=== PATIENT | male | born 1965 | race Caucasian/White ===

== ENCOUNTER 2023-10-17 07:34 | Inpatient (IN) | payer MEDICARE, MEDICAID, SELFPAY ==
[2023-10-17] VITALS (7 sets, daily range): BP systolic 145–185; BP diastolic 74–102; PULSE 63–75; RESP 16–20; TEMP 36.6–37.2; O2SAT 98–100; BMI 22.9
--- NOTE | ~2023-10-17 | CT_ITS ---
EXAMINATION: CT HEAD WITHOUT CONTRAST CLINICAL INFORMATION: Fall a few days ago. COMPARISON: None available. TECHNIQUE: Contiguous axial imaging was performed from the skull base to vertex without intravenous administration of contrast. This CT examination was performed using dose optimization techniques as appropriate, variously including the following: *Automated exposure control *Adjustment of mA and/or kV according to patient size (this includes techniques or standardized protocols for targeted exams where dose is matched to indication/reason for exam; i.e. extremities or head) *Use of iterative reconstruction technique DLP: 685 mGy-cm FINDINGS: There is hypodensity in the left occipital lobe, with encephalomalacia, mild dilatation of the left posterior horn lateral ventricle. Findings suggest sequela of prior infarction. There is no evidence of acute intracranial hemorrhage or edematous territorial infarction. No abnormal mass effect or midline shift is seen. Vasques to white matter differentiation is well preserved. No abnormal extra-axial fluid collections are identified. The ventricles are normal in size. The cerebellar tonsil is appropriately positioned. No acute calvarial fracture. Paranasal sinuses and mastoid air cells are well-aerated. CT/CT head/brain wo IV con IMPRESSION: *No CT evidence of acute intracranial hemorrhage or abnormal extra-axial fluid collection. *Left occipital hypodensity/encephalomalacia suggestive of prior infarction. *No CT evidence of acute edematous territorial infarction.
--- NOTE | ~2023-10-17 | CT_ITS ---
EXAMINATION: CT CHEST, ABDOMEN AND PELVIS with contrast CLINICAL INFORMATION: Reason for Exam sob, ams, abd pain, abnormal abd labs bili 1.8 COMPARISON: None TECHNIQUE: Multidetector volumetric CT imaging of the chest abdomen and pelvis obtained Axial MIP volume rendering provided. Sagittal and coronal reformatted images were obtained. This CT examination was performed using dose optimization techniques as appropriate, variously including the following: *Automated exposure control *Adjustment of mA and/or kV according to patient size (this includes techniques or standardized protocols for targeted exams where dose is matched to indication/reason for exam; i.e. extremities or head) *Use of iterative reconstruction technique CONTRAST: 85 mL Omnipaque 350 injected. Reformatted coronal and sagittal imaging was performed. DLP: 596 mGy-cm FINDINGS: IRON MELTER, LINES TUBES: Middle School Football Coach reviewed, no lines. LUNGS: Interstitial: Mild infiltrate/subsegmental atelectasis at middle and right lower lobes. Lung nodules: There is a 5 mm nodule right upper lobe image 147 series 4 AIRWAYS: Trachea and bronchi are normal. PLEURA: There is a small right pleural effusion. MEDIASTINUM AND VAMSI: The visualized thyroid gland is unremarkable. Mildly prominent pretracheal and right hilar lymph node might be reactive. There is no mediastinal mass. THORACIC AORTA: Aneurysmal dilatation of ascending aorta 4.2 cm. Descending aorta normal in size measures a 2.7 cm. CHEST WALL, LOWER NECK, SURROUNDING SOFT TISSUES: Normal HEART AND PERICARDIUM: Heart is enlarged. There are heavy coronary calcifications. HEPATOBILIARY: Diffusely hypodense liver suggesting hepatic steatosis. GALLBLADDER: Gallbladder unremarkable. SPLEEN: Spleen is normal in size. PANCREAS: No focal mass or ductal dilatation. GI TRACT: No distention or wall thickening. Evaluation of the bowel is limited due to lack of contrast and crowding of bowel loops, there is however no evidence of obstruction. ADRENALS: No adrenal nodules. KIDNEYS/URETERS: No hydronephrosis, stones or solid mass lesions. PELVIC ORGANS/BLADDER: Unremarkable PERITONEUM: No free air or fluid. LYMPH NODES: no retroperitoneal or mesenteric lymphadenopathy. VASCULAR:Heavy aortic vascular calcifications without evidence of aneurysm. BONES, ABDOMINAL WALL AND SOFT TISSUES: No active disease of the lumbar spine degenerative disc disease especially at L3-L4 L4-L5 and L5-S1. CT/CT abdomen pelvis w IV con IMPRESSION: 1. Mild interstitial infiltrate/subsegmental atelectasis at middle and right lower lobes. 2. Small right pleural effusion. 3. Mildly prominent mediastinal and right hilar lymph nodes probably reactive. 4. Cardiomegaly. 5. Diffusely hypodense liver suggesting hepatic steatosis. 6. Aneurysmal dilatation of ascending aorta 4.2 cm. 7. Heavy coronary calcification. 8. There is a 5 mm nodule right upper lobe. Attention to follow-up chest CT in 3 months recommended to ensure complete clearance and exclude underlying pathology.
--- NOTE | ~2023-10-17 | CT_ITS ---
EXAMINATION: CT CHEST, ABDOMEN AND PELVIS with contrast CLINICAL INFORMATION: Reason for Exam sob, ams, abd pain, abnormal abd labs bili 1.8 COMPARISON: None TECHNIQUE: Multidetector volumetric CT imaging of the chest abdomen and pelvis obtained Axial MIP volume rendering provided. Sagittal and coronal reformatted images were obtained. This CT examination was performed using dose optimization techniques as appropriate, variously including the following: *Automated exposure control *Adjustment of mA and/or kV according to patient size (this includes techniques or standardized protocols for targeted exams where dose is matched to indication/reason for exam; i.e. extremities or head) *Use of iterative reconstruction technique CONTRAST: 85 mL Omnipaque 350 injected. Reformatted coronal and sagittal imaging was performed. DLP: 596 mGy-cm FINDINGS: COMMUNICATIONS TECH, LINES TUBES: Chemical Strength Tester reviewed, no lines. LUNGS: Interstitial: Mild infiltrate/subsegmental atelectasis at middle and right lower lobes. Lung nodules: There is a 5 mm nodule right upper lobe image 147 series 4 AIRWAYS: Trachea and bronchi are normal. PLEURA: There is a small right pleural effusion. MEDIASTINUM AND VAMSI: The visualized thyroid gland is unremarkable. Mildly prominent pretracheal and right hilar lymph node might be reactive. There is no mediastinal mass. THORACIC AORTA: Aneurysmal dilatation of ascending aorta 4.2 cm. Descending aorta normal in size measures a 2.7 cm. CHEST WALL, LOWER NECK, SURROUNDING SOFT TISSUES: Normal HEART AND PERICARDIUM: Heart is enlarged. There are heavy coronary calcifications. HEPATOBILIARY: Diffusely hypodense liver suggesting hepatic steatosis. GALLBLADDER: Gallbladder unremarkable. SPLEEN: Spleen is normal in size. PANCREAS: No focal mass or ductal dilatation. GI TRACT: No distention or wall thickening. Evaluation of the bowel is limited due to lack of contrast and crowding of bowel loops, there is however no evidence of obstruction. ADRENALS: No adrenal nodules. KIDNEYS/URETERS: No hydronephrosis, stones or solid mass lesions. PELVIC ORGANS/BLADDER: Unremarkable PERITONEUM: No free air or fluid. LYMPH NODES: no retroperitoneal or mesenteric lymphadenopathy. VASCULAR:Heavy aortic vascular calcifications without evidence of aneurysm. BONES, ABDOMINAL WALL AND SOFT TISSUES: No active disease of the lumbar spine degenerative disc disease especially at L3-L4 L4-L5 and L5-S1. CT/CT chest w IV con IMPRESSION: 1. Mild interstitial infiltrate/subsegmental atelectasis at middle and right lower lobes. 2. Small right pleural effusion. 3. Mildly prominent mediastinal and right hilar lymph nodes probably reactive. 4. Cardiomegaly. 5. Diffusely hypodense liver suggesting hepatic steatosis. 6. Aneurysmal dilatation of ascending aorta 4.2 cm. 7. Heavy coronary calcification. 8. There is a 5 mm nodule right upper lobe. Attention to follow-up chest CT in 3 months recommended to ensure complete clearance and exclude underlying pathology.
--- NOTE | ~2023-10-17 | XR_ITS ---
EXAMINATION: XR chest 1V CLINICAL INFORMATION: Reason for Exam chest pian COMPARISON: None TECHNIQUE: Single portable frontal view. Tubes and lines: None Lungs and pleura: There is pulmonary vascular congestion, mild diffuse interstitial opacification possibly mild interstitial edema. There is a small right subpulmonic pleural effusion. Heart and mediastinum: Cardiac silhouette is enlarged, this is exaggerated by AP technique, prominent right eh, there are sternotomy wires from prior thoracotomy.. Bones/soft tissue: Skeletal structures included are normal for patient's age. XR/XR chest 1V IMPRESSION: 1. Congestive heart failure. 2. Small right subpulmonic pleural effusion. 3. Prominence of the right eh, enlarged cardiac silhouette this is exaggerated by AP technique. Recommend correlation with follow-up chest PA and lateral.
--- NOTE | 2023-10-17 07:41 | ECG_ITS ---
Test Reason : CHEST PAIN Blood Pressure : / mmHG Vent. Rate : 067 BPM Atrial Rate : 067 BPM P-R Int : 230 ms QRS Dur : 102 ms QT Int : 418 ms P-R-T Axes : 069 -08 114 degrees QTc Int : 441 ms Sinus rhythm with 1st degree A-V block Minimal voltage criteria for LVH, may be normal variant ( Tuan product ) Inferior infarct , age undetermined Anterior infarct , age undetermined T wave abnormality, consider lateral ischemia Abnormal ECG No previous ECGs available Referred By: Home Andrews Electronically Signed By:Thomas Mancilla
[2023-10-17 07:54] LABS: MANUAL DIFF FLAG NO
[2023-10-17 07:56] LABS: Basophils Percent Auto 0.5 % (0-2); Eosinophils Absolute Auto 0.3 X10*3/uL (0.0-0.4); Eosinophils Percent Auto 4.5 % (0-4); Hematocrit 39.8 % (42.0-52.0); Hemoglobin 12.5 g/dl (14.0-18.0); Imm Gran Abs Auto 0.02 X10*3/uL (0.00-0.03); Imm Gran Pct Auto 0.4 % (0.0-0.4); Lymphocytes Absolute Auto 0.7 X10*3/uL (1.2-4.9); Lymphocytes Percent Auto 12.4 % (20-40); Mean Corpuscular HGB Conc 31.4 g/dl (31.0-36.0); Mean Corpuscular Hemoglobin 26.4 pg (27.0-33.0); Mean Corpuscular Volume 84.1 fL (80.0-98.0); Mean Platelet Volume 11.2 fL (9.4-12.4); Monocytes Absolute Auto 0.4 X10*3/uL (0.1-1.2); Neutrophils Absolute Auto 4.2 x10*3/uL (2.0-8.3); Neutrophils Percent Auto 75.2 % (45-73); Platelet Count 148 X10*3/uL (160-400); Red Blood Count 4.73 X10*6/uL (4.60-5.80); Red Cell Distribution Width 16.7 % (11.0-16.0); White Blood Count 5.6 X10*3/uL (4.8-10.8)
[2023-10-17 08:06] LABS: INTERNATIONAL NORM RATIO 1.1 (0.9-1.1); Prothrombin Time 12.9 SEC (11.1-13.3)
[2023-10-17 08:08] LABS: COVID-19 Test Negative (Negative); IDNOW Serial# 152EDE1D
[2023-10-17 08:13] LABS: Alanine Aminotransferase 19 U/L (0-40); Albumin Level 3.3 g/dL (3.5-5.0); Alkaline Phosphatase 137 U/L (39-117); Anion Gap 9 (12-20); Aspartate Amino Transferase 25 U/L (5-37); Bilirubin Direct 0.9 mg/dL (0.0-0.5); Bilirubin Total 1.3 mg/dL (0.0-1.0); Blood Urea Nitrogen 28 mg/dL (9-16); Carbon Dioxide 26 mmol/L (22-29); Chloride 105 mmol/L (96-108); Creatinine Clr Calc Pharmacy 62.1; Estimated Glomerular Filt Rate > 60; Glucose Random 138 mg/dL (60-115); Potassium 4.7 mmol/L (3.3-5.1); Sodium 135 mmol/L (135-145); Total Protein 7.6 g/dL (6.5-8.0)
[2023-10-17 08:23] LABS: Troponin-I High Sensitivity 22.2 ng/L (<3.5-35.0)
--- NOTE | 2023-10-17 09:06 | ED.CHESTPAIN ---
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 Reports significant weakness, and states his chest hurts in the center. Now having fatigue, malaise, myalgias, difficulties urinating. He is drowsy, somnolent upon my examination able to answer basic questions alert to person, place not time or situation. Not on blood thinners. Non med compliant Difficult to assess NIH stroke scale patient falls asleep during my examination. Related Data Allergies Allergy/AdvReac Type Severity Reaction Status Date / Time No Known Allergies Allergy Verified 10/17/23 10:28 Review of Systems Review of Systems: Yes all other systems are reviewed and are negative [facility] Past Medical History Attestation statement: The following information was validated with the patient. Source: old records reviewed and nursing notes reviewed Social History Social History Smoked in Last 30 Days: Yes Advance Directives: No Advance Directives Information Provided: No Physical Exam Vital Signs: Vital Signs: Last Vital Signs Temp 97.8 F 10/17/23 13:34 Pulse 75 10/17/23 13:34 Resp 16 10/17/23 13:34 BP 147/90 H 10/17/23 13:34 Pulse Ox 100 10/17/23 13:34 O2 Del Method Room Air 10/17/23 13:34 BMI result Body Mass Index 22.9 vss Appearance: Alert.? Oriented X3.? Patient appears sick, somnolent and drowsy Head: Normocephalic, atraumatic, no step-offs or deformities Eyes: Pupils equal, round and reactive to light.? ENT: Pharynx normal.? Neck: Normal inspection.? Neck supple.? CVS: Normal heart rate and rhythm.? Pulses normal.? Respiratory: No respiratory distress.? Breath sounds faint crackles RLL.? Abdomen: Soft and diffuse discomfort.? Skin: Skin warm and dry.? Normal skin color.? Normal skin turgor.? Extremities: No lower extremity edema.? No calf ttp. Global weakness. Neuro: Oriented to person and place not time or situation.? No motor deficit.? No sensory deficit. Difficult to assess all 12 cranial nerves. Course Reevaluation(s) Reevaluation #1: CBC with normocytic anemia. Low platelets 148. No baseline labs to compare with. Chemistry with an elevated BUN likely secondary to poor p.o. intake/dehydration. Total bilirubin 1.3 could be secondary to history of polysubstance abuse,/hepatitis. Troponin 22.2 with he waves inverted in the anterior/lateral leads will obtain repeat troponin at this time. No complaints of chest pain at this moment. Will hold anticoagulation at this time. Coags unremarkable. COVID negative. CT head, toxicology, repeat troponin pending. Time: 09:31 Reevaluation #2: Spoke to patient's significant other on the phone we tells me patient was then had an [facility] recently and that we should obtain records from them they have a full list of medications on this patient. She tells me he is on Lasix unsure if he is taking it as prescribed. Repeat troponin negative/flat unlikely ACS. Ethanol negative. Urine toxicology, CT head, chest, abdomen and pelvis pending. Time: 10:56 Reevaluation #3: Spoke to [facility] Patient was seen at [facility] on Oct 13 per ED attending DC from hospital on Oct 13. Has PMHX heart faliure EF of < 25, CAD, 3 vessel CABGE, aortic valve endocarditits (2019), hepatitis C ( not treated), epilepsy. Spoke to Cardiology --> BNP likely elevated due to HF. Diuretics if crackles persist. Also recommends cultures. Medications Administered Discontinued Medications Generic Name Dose Route Start Last Admin Trade Name Freq PRN Reason Stop Dose Admin Furosemide 40 mg 10/17/23 10:19 10/17/23 10:28 Furosemide 40 Mg/4 Ml Vial IVPUSH 10/17/23 10:20 40 mg STAT STA Administration Protocol Iohexol 100 ml 10/17/23 10:43 10/17/23 10:43 Iohexol 350 Mg/Ml 100 Ml Infus..Btl IV 10/17/23 10:44 85 ml ONCE ONE Administration Medical Decision Making Medical Decision Making [facility] Narrative: [address] Andrews asked charge nurse to bring this patient back from the waiting roomd/t inverted T waves in anterior/lateral leads, no previous to compare with 58-year-old male presents with altered mental status x4 days had a fall 4 days ago with head strike and loss of consciousness. Now having fatigue, malaise, myalgias, difficulties urinating. Not on blood thinners. Very poor historian According to family members at the hospital he was seen he signed out against medical advice they told him he may have a brain bleed. Physical exam global weakness patient appears sick, somnolent, lethargic. Oriented to oriented to person and place not time or situation. RLL faint crackles. Will rule out intracranial hemorrhage, patient appears encephalopathic. Will rule out metabolic derangements, ACS. Unlikely pulmonary embolism. Will also rule out urinary tract infection, CHF, obstructing uropathy, urinary infection. Diffuse discomfort could be secondary to UTI, obstructing uropathy. Less likely acute abdomen, dissection, pancreatitis, diverticulitis, cholecystitis or appendicitis. Plan at this time labs, imaging, urine, toxicology, EKG. Differential Diagnosis Differential Diagnoses: The differential diagnosis associated with the presentation includes Will rule out intracranial hemorrhage, patient appears encephalopathic. Will rule out metabolic derangements, ACS. Unlikely pulmonary embolism. Will also rule out urinary tract infection, CHF, obstructing uropathy, urinary infection. Diffuse discomfort could be secondary to UTI, obstructing uropathy. Less likely acute abdomen, dissection, pancreatitis, diverticulitis, cholecystitis or appendicitis. 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 10/17/23 07:49 10/17/23 07:49 Labs: Lab Results 10/17/23 10/17/23 10/17/23 Range/Units 07:49 09:47 11:22 WBC 5.6 (4.8-10.8) X10*3/uL RBC 4.73 (4.60-5.80) X10*6/uL Hgb 12.5 L (14.0-18.0) g/dl Hct 39.8 L (42.0-52.0) % MCV 84.1 (80.0-98.0) fL MCH 26.4 L (27.0-33.0) pg MCHC 31.4 (31.0-36.0) g/dl RDW 16.7 H (11.0-16.0) % Plt Count 148 L (160-400) X10*3/uL MPV 11.2 (9.4-12.4) fL Immature Gran % (Auto) 0.4 (0.0-0.4) % Neut % (Auto) 75.2 H (45-73) % Lymph % (Auto) 12.4 L (20-40) % Gallia % (Auto) 7.0 (2-11) % Eos % (Auto) 4.5 H (0-4) % Baso % (Auto) 0.5 (0-2) % Lymph # (Auto) 0.7 L (1.2-4.9) X10*3/uL Gallia # (Auto) 0.4 (0.1-1.2) X10*3/uL Eos # (Auto) 0.3 (0.0-0.4) X10*3/uL Baso # (Auto) 0.0 (0.0-0.2) X10*3/uL Abs Immat Gran (auto) 0.02 (0.00-0.03) X10*3/uL Absolute Neuts (auto) 4.2 (2.0-8.3) x10*3/uL Absolute Nucleated RBC 0.000 (0.0-0.012) X10*3/uL Nucleated RBC % (auto) 0.0 (0.0-0.2) /100WBC PT 12.9 (11.1-13.3) SEC INR 1.1 (0.9-1.1) Sodium 135 (135-145) mmol/L Potassium 4.7 (3.3-5.1) mmol/L Chloride 105 (96-108) mmol/L Carbon Dioxide 26 (22-29) mmol/L Anion Gap 9 L (12-20) BUN 28 H (9-16) mg/dL Creatinine 1.00 (0.5-1.4) mg/dL Estim Creat Clear Calc 62.1 Estimated GFR > 60 Random Glucose 138 H (60-115) mg/dL Lactic Acid 1.1 (0.5-2.0) mmol/L Calcium 9.0 (8.4-10.2) mg/dL Total Bilirubin 1.3 H (0.0-1.0) mg/dL Direct Bilirubin 0.9 H (0.0-0.5) mg/dL AST 25 (5-37) U/L ALT 19 (0-40) U/L Alkaline Phosphatase 137 H (39-117) U/L Troponin I High Sens 22.2 20.3 (<3.5-35.0) ng/L B-Natriuretic Peptide 2264 H (<100) pg/mL Total Protein 7.6 (6.5-8.0) g/dL Albumin 3.3 L (3.5-5.0) g/dL Urine Color Yellow Urine Appearance Clear Urine pH 8.0 (5.0-9.0) Ur Specific [place] 1.015 (1.005-1.025) Urine Protein Negative (Neg-Trace) mg/dL Urine Glucose (UA) Negative (Negative) mg/dL Urine Ketones Negative (Negative) mg/dL Urine Blood Negative (Negative) Urine Nitrite Negative (Negative) Ur Leukocyte Esterase Negative (Negative) Urine Opiates Screen Not Detected (Not Detect) Urine Fentanyl Screen POSITIVE H (Not Detect) Ur Barbiturates Screen Not Detected (Not Detect) Ur Phencyclidine Scrn Not Detected (Not Detect) Ur Amphetamines Screen Not Detected (Not Detect) U Benzodiazepines Scrn POSITIVE H (Not Detect) Urine Cocaine Screen Not Detected (Not Detect) U Marijuana (THC) Screen Not Detected (Not Detect) Ethyl Alcohol < 10 mg/dL COVID-19 (BHUPINDER) Negative (Negative) COVID-19 Clin Com See Note Independent Interpretation I performed an independent interpretation of an: EKG (Ventricular rate 67 VA prolonged, QRS normal, QT/QTC normal, T-waves inverted in the anterior/lateral. No previous EKGs to compare with. Will repeat troponin at 03:00 hour enrique), Plain X-Ray (XR/XR chest 1V IMPRESSION: 1. Congestive heart failure. 2. Small right subpulmonic pleural effusion. 3. Prominence of the right eh, enlarged cardiac silhouette this is exaggerated by AP technique. Recommend correlation with follow-up chest PA and lateral.) and CT Scan (CT/CT chest w IV con IMPRESSION: 1. Mild interstitial infiltrate/subsegmental atelectasis at middle and right lower lobes. 2. Small right pleural effusion. 3. Mildly prominent mediastinal and right hilar lymph nodes probably reactive. 4. Cardiomegaly. 5. Diffusely hypodense liver sug) Radiology Impression Discussion of test interpretation with radiology: I have reviewed the radiologist's reading. Critical Care Time Critical Care Time Critical Care Time: Yes Total Critical Care Time: 45 Attestation: I attest to this time spent taking care of the patient, obtaining history, physical, reviewing labs, imaging, speaking to my attending, speaking to specialist. Discharge Plan Discharge Clinical Impression: Altered mental status Patient Disposition: Still a Patient
--- NOTE | 2023-10-17 09:26 | PC.NURSE ---
pt to CT at this time. will resume care when pt returns.
--- NOTE | 2023-10-17 09:47 | PC.NURSE ---
18gIV placed in the left forearm - labs obtained/sent to lab.
--- NOTE | 2023-10-17 10:04 | PC.NURSE ---
20gIV placed in the right forearm. 2nd set of cultures obtained/sent to lab.
[2023-10-17 10:09] LABS: B Type Natriuretic Peptide 2264 pg/mL (<100)
[2023-10-17 10:09] LABS: Lactic Acid 1.1 mmol/L (0.5-2.0)
--- NOTE | 2023-10-17 10:13 | PC.NURSE ---
pt to CT at this time.
[2023-10-17 10:21] LABS: Troponin-I High Sensitivity 20.3 ng/L (<3.5-35.0)
[2023-10-17 10:24] LABS: Ethanol < 10 mg/dL
[2023-10-17] MEDS: Furosemide 40 MG/4 ML VIAL IVPUSH (10:28)
--- NOTE | 2023-10-17 10:32 | PC.NURSE ---
pt returned from CT at this time. medication administered per provider order. pt waiting for CT results at this time. respirations remain even and unlabored. call cardona placed within reach.
[2023-10-17] MEDS: iohexoL 350 MG/ML 100 ML INFUS..BTL IV (10:43)
--- NOTE | 2023-10-17 11:24 | PC.NURSE ---
urine obtained/sent to lab. 1,200ml of clear, pale yellow urine noted in urinal post lasix administration. pt continues to rest in bed in no apparent distress at this time. respirations remain even and unlabored. family bedside. call cardona placed within reach.
[2023-10-17 11:28] LABS: Appearance Urine Clear; Color Urine Yellow; Glucose Urine UA Negative (Negative); Leukocyte Esterase Urine Negative (Negative); Nitrite Urine Negative (Negative); Specific Gravity - Urine 1.015 (1.005-1.025); Urine Blood Negative (Negative); Urine Ketones Negative (Negative); Urine Protein Negative (Neg-Trace)
[2023-10-17 11:40] LABS: Amphetamine Screen Urine Not Detected (Not Detect); Barbiturates, Urine Not Detected (Not Detect); Benzodiazepines Screen Urine POSITIVE (Not Detect); Cannabinoid Screen Urine Not Detected (Not Detect); Cocaine Screen Urine Not Detected (Not Detect); Fentanyl, urine POSITIVE (Not Detect); Opiate Screen Urine Not Detected (Not Detect); Phencyclidine Screen Urine Not Detected (Not Detect)
--- NOTE | 2023-10-17 13:35 | PC.NURSE ---
vss and up to date at this time. pt sitting upright/resting comfortably in no apparent distress eating lunch. respirations remain even and unlabored. family bedside for support. call cardona placed within reach.
--- NOTE | 2023-10-17 13:47 | P.HPHOSP_ITS ---
History of Present Illness Date of Service: 10/17/23 Attending physician on admission: Luís Sinclair Chief Complaint: AMS, chest pain Pt is a 58-year-old male with a PMH significant for?CAD, 3-vessel CABG (2019), HFrEF <25%, aortic valve endocarditis (2018), hepatitis C (untreated), and epilepsey who presents to the ED for evaluation of altered mental status, SOB, weakness, and fatigue x4 days. Pt lives in [facility], and had a fall with headstrike and LOC 4 days ago in [facility] [place]. ED provider contacted [facility] in [place] and found out that patient was seen on October 13 and left AMA later that same day. There was concern for possible bleeding on brain. Attempted to get records from hospital but will be unable to obtain until Wednesday. Patient then came to [place] to visit his sister. While here he was noted to have moments of confusion and lethargy. Sister states a few days ago he was repeatedly asking the same questions, more silent than usual, and not recognizing people. Mentation has improved some since then, but pt has also been fatigued and lethargic, weak and unable to ambulate at home. When pt initially presented to the ED he was somnolent, arousable to verbal stimuli, but barely participating in interview and falling back asleep during exam. Pt more awake during this interview and AOx3, but also falling asleep during exam. Pt states he has been having difficulty breathing and feels like he has ?water on his lungs? for the past 2-3 days. Endorses orthopnea and currently can only sleep on his side. Feels weak and has had difficulty walking. Denies chest pain/pressure, palpitations, but has chest discomfort with breathing. Denies fever, chills, N/V, abdominal pain. No headache or acute vision changes. According to sister, pt has had multiple previous admissions to the hospital for CHF, with last one possible 2-3 weeks ago. Pt states he occasionally takes his home medications, but more often than not does not. Sister also reports patient had a long history of IVDU, but was clean for 13-14 years; however, after CABG began using again for a short period. Sister believes he has been clean for some time. However, offers conflicting reports of last use: first states 8 days ago, then later 4-5 days ago. Denies IV use, says has been snorting heroin. In the ED pt was hypertensive up to 185/102, vitals otherwise WNL. Labs were significant for H&H 12.5/39.8, BUN 28, creatinine 1.00 (baseline unknown), bilirubin 1.3, alk-phos 137, initial troponin 22.2 with repeat flat at 20.3., BNP 2264. Tox screen positive for fentanyl and benzos. Tested negative for COVID. CXR showed evidence of congestive heart failure with small right pleural effusion. Head CT found no evidence of acute intracranial hemorrhage or abnormal extra-axial fluid collection and no evidence of acute edematous territorial infarction. But did find left occipital hypodensity/encephalomalacia suggestive of prior infarction. CT of chest found mild interstitial infiltrate/subsegmental atelectasis at middle and right lower lobes with small right pleural effusion, mildly prominent mediastinal and right hilar lymph nodes probably reactive, cardiomegaly, heavy coronary calcification, and 5 mm nodule in right upper lobe. CT of abdomen/pelvis found aneurysmal dilation of ascending aorta 4.2 cm, and diffusely hypodense liver suggesting hepatic steatosis. EKG demonstrated sinus rhythm with first-degree AV block with T-wave inversions in V4, V5, V6, and lead I. Pt was treated with furosemide 40mg IV. Pt will be admitted to the hospital for treatment further evaluation of acute decompensated HFrEF exacerbation. Review of Systems 2 Review of Systems: SOB, difficulty breathing Fatigue, weakness, unable to ambulate at home Confusion Chest discomfort with breathing Denies chest pain/pressure, palpitations [facility] Medical History (Updated 10/17/23 @ 15:45 by DION Ortiz) Seizure disorder Hepatitis C CAD (coronary artery disease) Endocarditis IVDU (intravenous drug user) HFrEF (heart failure with reduced ejection fraction) Surgical History (Updated 10/17/23 @ 15:43 by DION Ortiz) S/P CABG (coronary artery bypass graft) Social History Household Members: Other Housing: House Do you presently have visiting nurse or other home services: No Patient Tobacco Use Status: Former Tobacco user Tobacco use type: Cigarette Smoked in Last 30 Days: Yes Substance Use Type: Unknown Substance Use Frequency: Daily Last Used Substance: Days (ago) Currently Displaying Signs/Symptoms of Drug Intoxication Withdrawal: Yes Any prior treatment program specific to substance use: Yes Have you been hit, kicked, punched, or otherwise hurt by someone within the past year? If so, by whom?: No Do you feel safe in your current relationship?: Yes Is there a partner from a previous relationship who is making you feel unsafe now?: No Advance Directives: No Advance Directives Information Provided: No Do you have thoughts of harming others: None Do you have a plan to hurt others: No Plan Nutrition Risks: No Nutritional Risk Meds Allergies Allergy/AdvReac Type Severity Reaction Status Date / Time No Known Allergies Allergy Verified 10/17/23 10:28 Home Medications Medication Instructions Recorded Confirmed Last Taken Type apixaban 5 mg tablet (Eliquis) 5 mg PO BID 10/17/23 10/17/23 Unknown History aspirin 81 mg tablet,delayed 81 mg PO DAILY 10/17/23 10/17/23 Unknown History release atorvastatin 40 mg tablet 40 mg PO DAILY 10/17/23 10/17/23 Unknown History bumetanide 2 mg tablet 2 mg PO DAILY 10/17/23 10/17/23 Unknown History buprenorphine 8 mg-naloxone 2 mg 1 film sublingual DAILY 10/17/23 10/17/23 Unknown History sublingual film carvedilol 6.25 mg tablet 6.25 mg PO DAILY 10/17/23 10/17/23 Unknown History dapagliflozin propanediol 10 mg 10 mg PO DAILY 10/17/23 10/17/23 Unknown History tablet (Farxiga) eplerenone 25 mg tablet 25 mg PO DAILY 10/17/23 10/17/23 Unknown History isosorbide mononitrate 30 mg 30 mg PO DAILY 10/17/23 10/17/23 Unknown History tablet,extended release 24 hr sacubitril 24 mg-valsartan 26 mg 1 tab PO DAILY 10/17/23 10/17/23 Unknown History tablet (Entresto) Physical Exam 2 Vital Signs and Narrative: Vital Signs: Last Vital Signs Temp 97.8 F 10/17/23 13:34 Pulse 75 10/17/23 13:34 Resp 16 10/17/23 13:34 BP 147/90 H 10/17/23 13:34 Pulse Ox 100 10/17/23 13:34 O2 Del Method Room Air 10/17/23 13:34 BMI result Body Mass Index 22.9 Constitutional: Alert, somnolent but arousable, falling asleep during interview, in no acute distress. Mental Status: Oriented to person, place and time. Eyes: Pupils are equal, round, and reactive to light. Ear, Nose, and Throat: Oropharynx clear, mucous membranes moist. Ears and nose without deformities. Trachea midline. Respiratory: Mild crackles in lower lobes. Cardiovascular: S1, S2 regular. No murmurs, rubs, or gallops. Gastrointestinal: Abdomen soft, non-tender, non-distended. Normal bowel sounds. Neurologic: Cranial nerves II-XII are grossly intact bilaterally. No focal neurological deficits. Moves all extremities spontaneously. Skin: Warm, dry. Musculoskeletal: No cyanosis or clubbing. Extremities: No edema. Psychiatric: Normal mood and affect. Results Labs 10/17/23 07:49 10/17/23 07:49 Labs: Laboratory Results - last 24 hr 10/17/23 10/17/23 10/17/23 07:49 09:47 11:22 MCV 84.1 MCH 26.4 L MCHC 31.4 RDW 16.7 H Plt Count 148 L MPV 11.2 Immature Gran % (Auto) 0.4 Neut % (Auto) 75.2 H Lymph % (Auto) 12.4 L Charlotte % (Auto) 7.0 Eos % (Auto) 4.5 H Baso % (Auto) 0.5 Lymph # (Auto) 0.7 L Charlotte # (Auto) 0.4 Eos # (Auto) 0.3 Baso # (Auto) 0.0 Abs Immat Gran (auto) 0.02 Absolute Neuts (auto) 4.2 Absolute Nucleated RBC 0.000 Nucleated RBC % (auto) 0.0 PT 12.9 INR 1.1 Anion Gap 9 L Estim Creat Clear Calc 62.1 Estimated GFR > 60 Random Glucose 138 H Lactic Acid 1.1 Calcium 9.0 Total Bilirubin 1.3 H Direct Bilirubin 0.9 H AST 25 ALT 19 Alkaline Phosphatase 137 H Troponin I High Sens 22.2 20.3 B-Natriuretic Peptide 2264 H Total Protein 7.6 Albumin 3.3 L Urine Color Yellow Urine Appearance Clear Urine pH 8.0 Ur Specific Harwood 1.015 Urine Protein Negative Urine Glucose (UA) Negative Urine Ketones Negative Urine Blood Negative Urine Nitrite Negative Ur Leukocyte Esterase Negative Urine Opiates Screen Not Detected Urine Fentanyl Screen POSITIVE H Ur Barbiturates Screen Not Detected Ur Phencyclidine Scrn Not Detected Ur Amphetamines Screen Not Detected U Benzodiazepines Scrn POSITIVE H Urine Cocaine Screen Not Detected U Marijuana (THC) Screen Not Detected Ethyl Alcohol < 10 COVID-19 (BHUPINDER) Negative COVID-19 Clin Com See Note Imaging Radiologist's Impressions: Impressions Chest X-Ray 10/17/23 08:14 IMPRESSION: 1. Congestive heart failure. 2. Small right subpulmonic pleural effusion. 3. Prominence of the right eh, enlarged cardiac silhouette this is exaggerated by AP technique. Recommend correlation with follow-up chest PA and lateral. Head CT 10/17/23 09:42 IMPRESSION: *No CT evidence of acute intracranial hemorrhage or abnormal extra-axial fluid collection. *Left occipital hypodensity/encephalomalacia suggestive of prior infarction. *No CT evidence of acute edematous territorial infarction. Abdomen/Pelvis CT 10/17/23 10:44 IMPRESSION: 1. Mild interstitial infiltrate/subsegmental atelectasis at middle and right lower lobes. 2. Small right pleural effusion. 3. Mildly prominent mediastinal and right hilar lymph nodes probably reactive. 4. Cardiomegaly. 5. Diffusely hypodense liver suggesting hepatic steatosis. 6. Aneurysmal dilatation of ascending aorta 4.2 cm. 7. Heavy coronary calcification. 8. There is a 5 mm nodule right upper lobe. Attention to follow-up chest CT in 3 months recommended to ensure complete clearance and exclude underlying pathology. Chest CT 10/17/23 10:44 IMPRESSION: 1. Mild interstitial infiltrate/subsegmental atelectasis at middle and right lower lobes. 2. Small right pleural effusion. 3. Mildly prominent mediastinal and right hilar lymph nodes probably reactive. 4. Cardiomegaly. 5. Diffusely hypodense liver suggesting hepatic steatosis. 6. Aneurysmal dilatation of ascending aorta 4.2 cm. 7. Heavy coronary calcification. 8. There is a 5 mm nodule right upper lobe. Attention to follow-up chest CT in 3 months recommended to ensure complete clearance and exclude underlying pathology. Assessment and Plan (1) HFrEF (heart failure with reduced ejection fraction): Status: Acute Plan Pt is a 58-year-old male with a PMH significant for?CAD, 3-vessel CABG (2019), HFrEF <25%, aortic valve endocarditis (2019), hepatitis C (untreated), and epilepsey who presents to the ED for evaluation of altered mental status, SOB, weakness, and fatigue x4 days. Pt will be admitted to the hospital for treatment further evaluation of acute decompensated HFrEF exacerbation. Acute decompensated HFrEF exacerbation Increased SOB, fatigue, difficulty ambulating, elevated BNP, and CXR with evidence of CHF Likely secondary to medication noncompliance Patient apparently with history of LVEF <25%, multiple hospitalizations for CHF exacerbations Patient given 40 mg Lasix IV in ED Will treat with Lasix 40 mg IV b.i.d. Continue Entresto Follow lytes, mag, I/O Daily weights, low-salt diet Cardiology consult Echocardiogram Monitor on telemetry Altered mental status Family at home noted AMS x4 days Was quite somnolent and lethargic at time of presentation; difficult to keep awake Currently patient is still somnolent, but answering questions appropriately; unclear if at baseline Unclear etiology: No infectious source, but patient with history of IVDU and recent fall with head strike and LOC 4 days prior Imaging of head negative for acute intracranial pathology, acute territorial infarct, or acute hemorrhage Differential includes: In the setting of CHF exacerbation vs drug intoxication vs bacteremia vs concussion Monitor mentation Hx of IVDU Pt denies recent IV use, says has been snorting heroin Reports last using 3-4 days ago Addition medicine consult Follow cultures CAD/HLD Continue aspirin, statin HTN Continue carvedilol, isosorbide mononitrate Wwa-[id number]-vrgzvrzsz diabetes type [address] sliding scale insulin Full Code Attending:?Dr. Sinclair DVT Prophylaxis: On Eliquis Pt will require a hospitalization of at least two nights for treatment of?acute decompensated HFrEF and possible altered mental status. Patient has a significant cardiac history including CABG, aortic valve endocarditis, and seizure disorder and has had a high risk of severe decompensation if not hospitalized and treated with IV diuretics and close cardiac and lab monitoring. Patient also requires specialist consultation and additional cardiac imaging. Quality Stroke Does the patient have a stroke diagnosis?: No VTE Prior VTE?: No VTE Risk Level:: Medical - moderate - high VTE Device Contraindication: Treatment Not Indicated VTE Drug Contraindication: N/A - Med Ordered
--- NOTE | 2023-10-17 14:17 | PC.NURSE ---
pt speaking w/ hospitalist at this time.
[2023-10-17] MEDS: Enoxaparin Sodium 40 MG/0.4 ML SYRINGE SUBCUT (15:27)
--- NOTE | 2023-10-17 15:32 | PC.NURSE ---
pt speaking w/ literacy coach KASSIDY heath at this time.
--- NOTE | 2023-10-17 15:52 | MHC.RECOVRN ---
Met with pt in ED12 after consult placed to Addiction Medicine for recent heroin use and hx IV substance use. Pt had presented to the ED reporting chest pain, was drowsy in triage. Upon evaluation, pt admitted for treatment of acute decompensated HFrEF exacerbation. Pt laying in bed, awake, alert, easily engages in conversation. Appears slightly restless and anxious, reports feeling hot/cold. Pt reports he currently uses heroin/fentanyl, 1-2 bags daily, [place], x 3 years. Reports last use was Wednesday, however, pt seems to have incorrect timeline of recent events. Pt denies other substances. Pt reports hx Suboxone until 2019 when he had heart surgery, after that had difficulty initiating. Pt reports longest period of recovery was 10 years, utilizing Suboxone. Currently, pt is not interested in staying on MOUD, is only interested in utilizing medication while here to address any withdrawal symptoms. Pt reports he is not experiencing withdrawal, however, reporting chills and does appear slightly restless. Pt reports when he was recently at a hospital in [place] he was given 10 mg methadone with positive effect and was able to sleep. Pt denies hx methadone through [facility]. Pt denies questions or concerns at this time. Discussed with Christina Landry APRN.
--- NOTE | 2023-10-17 17:52 | PHA.MEDREC ---
Pharmacy Consult ? Medication Reconciliation Pharmacy has completed the medication reconciliation. Spoke with [facility] in [place] to get list of medications he was on with directions, this is what I used for his home med list. Attending PA is aware. Claim history does report consistent refills of Suboxone 8-2mg TID. PDMP does not show CT so unable to confirm through there.
--- NOTE | 2023-10-17 18:39 | PC.NURSE ---
admission worksheet complete. transport notified at this time.
[2023-10-17] MEDS: methADONE HCl 20 MG/2 ML ORAL.CONC 10 MG PO (21:08)
[2023-10-18] VITALS (7 sets, daily range): BP systolic 110–160; BP diastolic 66–97; PULSE 52–70; RESP 16–20; TEMP 36.3–37; O2SAT 95–100
[2023-10-18 00:39] LABS: Glucose, Whole Blood 90 mg/dL (60-115)
[2023-10-18] MEDS: Melatonin 3 MG TABLET 6 MG PO ×2 (00:41→23:17)
[2023-10-18] MEDS: methADONE HCl 20 MG/2 ML ORAL.CONC 10 MG PO (03:13)
[2023-10-18] MEDS: 0.9 % Sodium Chloride Flush 3 ML SYRINGE IVFLUSH ×2 (03:15→09:31)
--- NOTE | 2023-10-18 07:00 | CA_ITS ---
Transthoracic Echocardiogram Patient (Last, First, Middle): Candido Byrd, Gender: Male Date of : 1965 Age: 58 Procedure Date: 10/18/2023 Procedure Type: Transthoracic Echocardiogram Location: [facility] [place] Height: 157.48 cm Weight: 56.7 kg BSA: 1.57 m2 Heart Rate: 46 bpm BP: 160 / 97 mmHg Mri Tech: DAVID Sim MD: Kyra ASHLEY Security Tester: Jeff Medellin MD Symptoms: CHF exacerbation Study Quality: Adequate ECG Rhythm: Bradycardia Conclusions: - 1. Mildly dilated left ventricle with moderately reduced LV ejection fraction with grade 3 diastolic dysfunction with moderate LVH with underlying wall motion abnormality consistent with ischemic cardiomyopathy 2. Severe biatrial enlargement 3. Mild aortic regurgitation 4. Normal RV systolic pressure 5. Mildly dilated ascending aorta at 4.2 cm 6. No gross pericardial effusion Findings Left Ventricle Mildly increased left ventricular cavity size. There is moderately increased left ventricular wall thickness. The left ventricular systolic function is moderately decreased. The visually estimated ejection fraction is between 35 40%. Spectral Doppler is indicative of a restrictive filling pattern. Elevated filling pressures. E/E prime ratio is >15, consistent with elevated filling pressures. Evidence suggests grade III (severe) diastolic dysfunction. Peak GLS is -8.7%, markedly reduced. there is basal inferior, mid inferior, basal inferolateral, inferoseptal wall motion abnormality. Right Ventricle Normal right ventricular cavity size. There is severely decreased right ventricular systolic function. Atria Severe biatrial enlargement. Interatrial shunt cannot be excluded. Aortic Valve Normal aortic valve structure and function. There is no aortic valve stenosis. There is mild aortic valve regurgitation. Mitral Valve There is mild anterior and posterior mitral leaflet thickening. There is trace mitral valve regurgitation. There is no mitral valve stenosis. Pulmonic Valve The pulmonic valve is likely normal. There is trace to mild pulmonic valve regurgitation. Tricuspid Valve Normal tricuspid valve structure. There is trace tricuspid valve regurgitation. The right ventricular systolic pressure is normal. The right ventricular systolic pressure is 17 mmHg. Normal right atrial pressure. There is no evidence of pulmonary hypertension. Great Vessels The pulmonary artery was not well visualized. There is mild dilatation of the ascending aorta measuring 4.10 cm. Small plaque is seen in the sino tubular ridge. Venous The inferior vena cava is normal in size and collapses greater than 50% with inspiration. Pericardium/Pleural There is no evidence of pericardial effusion. Prior Study Comparison No prior study available for comparison. Measurements 2D Linear Measurements IVSd: 1.38 0.6-0.9/0.6-1.0 cm LVIDd: 5.69 3.9-5.3/4.2-5.9 cm LVIDd Index: 3.62 2.4-3.2/2.2-3.1 cm/m2 LVIDs: 4.94 2.0-3.6 cm LVPWd: 1.39 0.7-1.1 cm LA Diam: 4.70 2.7-3.8/3.0-4.0 cm LAIDs Index: 2.99 1.5-2.3 cm/m2 LV Mass: 438.13 67-162/88-224 g LV Mass Index: 279.06 43-95/49-115 g/m2 LVOT Diam: 2.30 3.0+(-)1.3 cm 2D Systolic Function EF 4C: 35.60 >55% EF 2C: 38.60 >55% EF BiP: 36.10 >55% Mitral Valve MV Pk E: 0.62 MV PK A: 0.17 MV Decel Time: 233.00 E/A: 3.70 E'Lateral: 4.37 E'Medial: 3.44 E/E' Med: 17.90 E/E' Lat: 14.10 PHT: 68.00 MVA PHT: 3.24 Decel [place]: 2.64 Aortic Valve AoV Pk [place]: 1.19 AoV Pk Grad: 6.00 [place]: 2.96 AI Pk [place]: 4.54 AI VTI: 3.85 AI [place]: 1.52 LVOT LVOT Pk [place]: 0.82 LVOT Mn [place]: 0.61 LVOT VTI: 0.19 LVOT Pk Grad: 3.00 LVOT Mn Grad: 2.00 LVOT Diam: 2.30 LVOT Area: 4.15 Diastolic Function MV Pk E: 0.62 MV Pk A: 0.17 E/A: 3.70 E'Medial: 3.44 E/E' Med: 17.90 E' Laterial: 4.37 E/E' Lat: 14.10 Right Ventricle TAPSE (mm): 8.10 TVS' [place]: 6.60 Tricuspid Valve TR Pk [place]: 1.88 TR Pk Grad: 14.00 RA Press: 3.00 RVSP: 17.00 Great Vessels Aorta Sinus of Valsalva: 3.90 2.0-3.5 cm Ao Asc: 4.10 2.1-3.4 cm Pulmonary Valve PV Pk [place]: 0.74 Peak PV Grad: 2.00 Sh[place] QP:QS: 0.60 Updated in Other Vendor System with Status of Final Jeff Medellin MD electronically signed on 10/18/2023 2:45:55 PM with status of Final
[2023-10-18 07:32] LABS: Anion Gap 9 (12-20); Blood Urea Nitrogen 32 mg/dL (9-16); Calcium 8.9 mg/dL (8.4-10.2); Carbon Dioxide 30 mmol/L (22-29); Chloride 101 mmol/L (96-108); Estimated Glomerular Filt Rate > 60; Glucose Random 88 mg/dL (60-115); Magnesium 2.1 mg/dL (1.6-2.6); Potassium 4.5 mmol/L (3.3-5.1); Sodium 135 mmol/L (135-145)
[2023-10-18 07:47] LABS: Glucose, Whole Blood 79 mg/dL (60-115)
[2023-10-18] MEDS: Atorvastatin Calcium 40 MG TABLET PO (09:30)
[2023-10-18] MEDS: Furosemide 40 MG/4 ML VIAL IVPUSH ×2 (09:30→17:38)
[2023-10-18] MEDS: Isosorbide Mononitrate 30 MG TAB.ER.24H PO (09:30)
[2023-10-18] MEDS: Apixaban 5 MG TABLET PO ×2 (09:31→23:16)
[2023-10-18] MEDS: Sacubitril/Valsartan 24/26 1 TAB TABLET PO (09:31)
[2023-10-18] MEDS: Aspirin Enteric Coated 81 MG TABLET.DR PO (09:31)
[2023-10-18] MEDS: carvediloL 6.25 MG TABLET PO (09:31)
--- NOTE | 2023-10-18 10:35 | HO.PM.IMPN ---
Subjective Subjective Date of Service: 10/18/23 Interval History: imrpoving Physical Exam Vital Signs: Vital Signs: Last Vital Signs Temp 97.8 F 10/18/23 07:11 Pulse 68 10/18/23 07:11 Resp 20 10/18/23 07:11 BP 160/97 H 10/18/23 07:11 Pulse Ox 100 10/18/23 07:11 O2 Del Method Room Air 10/18/23 07:11 BMI result Body Mass Index 22.9 General: AO X 3, no acute distress Resp: CTA bilateral, no accessory muscles used CVS: S1,S2,RRR GI: soft, non tender, non distended Neuro: motor grossly intact, alert Psych: appropriate affect, appropriate insight Objective Data Active Medications Acetaminophen (Acetaminophen 325 Mg Tablet) 650 mg PO Q6H PRN PRN Reason: Pain, Mild (Pain Scale 1-3) Apixaban (Apixaban 5 Mg Tablet) 5 mg PO BID [facility] Last Admin: 10/18/23 09:31 Dose: 5 mg Documented By: PAUL Aspirin (Aspirin Enteric Coated 81 Mg Tablet.) 81 mg PO DAILY [facility] Last Admin: 10/18/23 09:31 Dose: 81 mg Documented By: PAUL Atorvastatin Calcium (Atorvastatin Calcium 40 Mg Tablet) 40 mg PO DAILY [facility] Last Admin: 10/18/23 09:30 Dose: 40 mg Documented By: PAUL Benzonatate (Benzonatate 100 Mg Capsule) 100 mg PO TID PRN PRN Reason: Cough Buprenorphine/Naloxone (Buprenorphine/Naloxone 8/2 Mg Film) 1 film SUBLINGUAL TID [facility] Last Admin: 10/18/23 09:32 Dose: Not Given Documented By: PAUL Non-Admin Reason: Patient Refused Carvedilol (Carvedilol 6.25 Mg Tablet) 6.25 mg PO DAILY [facility]; Protocol Last Admin: 10/18/23 09:31 Dose: 6.25 mg Documented By: PAUL Dextrose (Dextrose 50 % 25 Gm/50 Ml Syringe) 25 gm IVPUSH Q15M PRN; Protocol PRN Reason: per Hypoglycemia Standing Ord. Docusate Sodium (Docusate Sodium 100 Mg Capsule) 100 mg PO DAILY PRN PRN Reason: Constipation Furosemide (Furosemide 40 Mg/4 Ml Vial) 40 mg IVPUSH BID@0900,1800 [facility]; Protocol Last Admin: 10/18/23 09:30 Dose: 40 mg Documented By: PAUL Glucose (Glucose Gel 15 Gm Gel..Gram.) 15 gm PO Q15M PRN; Protocol PRN Reason: per Hypoglycemia Standing Ord. Insulin Human Lispro (Insulin Lispro 100 Unit/Ml 3 Ml Vial) 0 unit SUBCUT QIDACHS [facility]; Protocol Last Admin: 10/18/23 08:14 Dose: Not Given Documented By: PAUL Non-Admin Reason: No Insulin Coverage Isosorbide Mononitrate (Isosorbide Mononitrate 30 Mg Tab.Er.24h) 30 mg PO DAILY [facility]; Protocol Last Admin: 10/18/23 09:30 Dose: 30 mg Documented By: PAUL Melatonin (Melatonin 3 Mg Tablet) 6 mg PO BEDTIME PRN PRN Reason: Insomnia Last Admin: 10/18/23 00:41 Dose: 6 mg Documented By: ROSANGELA Methadone HCl (Methadone Hcl 20 Mg/2 Ml Oral.Conc) 10 mg PO Q3H PRN PRN Reason: Opiate Withdrawal Last Admin: 10/18/23 03:13 Dose: 10 mg Documented By: ROSANGELA Ondansetron HCl (Ondansetron Hcl 4 Mg/2 Ml Vial) 4 mg IVPUSH Q8H PRN PRN Reason: Nausea and Vomiting Sacubitril/Valsartan (Sacubitril/Valsartan 1 Tab Tablet) 1 tab PO DAILY [facility]; Protocol Last Admin: 10/18/23 09:31 Dose: 1 tab Documented By: PAUL Sodium Chloride (0.9 % Sodium Chloride Flush 3 Ml Syringe) 3 ml IVFLUSH [facility] Last Admin: 10/18/23 09:31 Dose: 3 ml Documented By: PAUL Labs 10/17/23 07:49 10/18/23 07:05 Labs: Laboratory Results - last 24 hr 10/17/23 10/17/23 10/18/23 07:49 11:22 00:35 Anion Gap Estim Creat Clear Calc Estimated GFR POC Glucose 90 Random Glucose Calcium Magnesium Total Creatine Kinase 49 Urine Color Yellow Urine Appearance Clear Urine pH 8.0 Ur Specific [place] 1.015 Urine Protein Negative Urine Glucose (UA) Negative Urine Ketones Negative Urine Blood Negative Urine Nitrite Negative Ur Leukocyte Esterase Negative Urine Opiates Screen Not Detected Urine Fentanyl Screen POSITIVE H Ur Barbiturates Screen Not Detected Ur Phencyclidine Scrn Not Detected Ur Amphetamines Screen Not Detected U Benzodiazepines Scrn POSITIVE H Urine Cocaine Screen Not Detected U Marijuana (THC) Screen Not Detected 10/18/23 10/18/23 07:05 07:10 Anion Gap 9 L Estim Creat Clear Calc 54.0 Estimated GFR > 60 POC Glucose 79 Random Glucose 88 Calcium 8.9 Magnesium 2.1 Total Creatine Kinase Urine Color Urine Appearance Urine pH Ur Specific [place] Urine Protein Urine Glucose (UA) Urine Ketones Urine Blood Urine Nitrite Ur Leukocyte Esterase Urine Opiates Screen Urine Fentanyl Screen Ur Barbiturates Screen Ur Phencyclidine Scrn Ur Amphetamines Screen U Benzodiazepines Scrn Urine Cocaine Screen U Marijuana (THC) Screen Assessment and Plan (1) HFrEF (heart failure with reduced ejection fraction): Status: Acute Plan 58M PMH hfref, cad s/p cabg, AV endocarditis, hcv, epilepsy, presented with sob acute on chronic systolic chf iv lasix echo entresto, coreg follow up cardio oipate dependence addiction eval cad asa, statin htn coreg, imdur, entresto dm insulin on eliquis ?indiciation dvt prophylaxis - eliquis full code reason for continued hospitalization:iv diuresis Quality Stroke Does the patient have a stroke diagnosis?: No VTE Prior VTE?: No VTE Risk Level:: Medical - moderate - high VTE Device Contraindication: Treatment Not Indicated VTE Drug Contraindication: N/A - Med Ordered
[2023-10-18 11:27] LABS: Glucose, Whole Blood 93 mg/dL (60-115)
[2023-10-18] MEDS: methADONE HCl 20 MG/2 ML ORAL.CONC PO (11:56)
--- NOTE | 2023-10-18 13:27 | MHC.RECOVRN ---
Met with pt in 477 to follow up after receiving two 10 mg doses methadone overnight. Pt laying in bed, awake, alert, easily engages in conversation, appears comfortable. Pt reports feeling good. Pt reports prior to presentation yesterday he took a pill that was given to him that he was told would help him sleep. Pt aware pill was most likely fentanyl. Discussed presence of fentanyl in drug supply/pressed pills, pt verbalizes understanding. Pt denies hx overdose. Pt denies current withdrawal symptoms, reports methadone helped and would like to taper while in the hospital. Pt reports he plans to stay with sister and not return to [place]. Pt reports he knows everyone and as soon as you open the door there are drugs. Pt is not interested in remaining on [facility]OU[facility]. Pt denies questions or concerns for t/w. Discussed with Christina Landry APRN.
--- NOTE | 2023-10-18 14:05 | P.CONCA_ITS ---
History of Present Illness History of Present Illness Date of Service: 10/18/23 Requesting physician: Luís Sinclair Consult reason: other (CHF exacerbation) Chief complaint: CHF exacerbation Narrative: I was consulted to see Candido in cardiology consultation today for CHF exacerbation. Patient generally lives in [facility] is visiting his sister lives in [place]. He was brought to the emergency room because of altered mental status by his sister and patient says that he has not able to breathe and says he has water in his lungs. He has extensive past medical history including heart failure with reduced ejection fraction with LV ejection fraction less than 25%, CAD status post three-vessel coronary artery bypass grafting in 2019, aortic valve endocarditis in 2019, hepatitis-C, hypertension. Patient says he usually is not very compliant with his medications because he says he does not feel well when he takes his medications. He came to the hospital as he was having labored breathing and was altered mental sensorium. He was noted to be in decompensated congestive heart failure with a BNP in the 2200 range with chest x-ray finding consistent with congestive heart failure. He has been admitted and has been started on his usual medications. Noted to have now bradycardia with heart rate in the 40s on carvedilol therapy. His blood pressure is elevated. He has overall diuresed about 3.5 L. he said he is breathing is better. He has been advised defibrillator in the past but he has deferred. Review of Systems 2 Constitutional: Constitutional: Reports no additional constitutional complaints and Reports weakness Cardiovascular: Cardiovascular: Denies chest pain, Denies leg edema, Denies lightheadedness, Denies Loss of Consciousness, Denies palpitations, Reports dyspnea on exertion and Reports orthopnea Respiratory: Respiratory: Reports dyspnea on exertion Gastrointestinal: Gastrointestinal: Reports no additional gastrointestinal complaints Integumentary/Breasts: Skin/Breast: Reports system reviewed and no additional complaints, except as docu Neurologic: Reports weakness Endocrine: Endocrine: Denies palpitations PMFSH Past Medical History Medical History Seizure disorder Hepatitis C CAD (coronary artery disease) Endocarditis IVDU (intravenous drug user) HFrEF (heart failure with reduced ejection fraction) Surgical History Surgical History S/P CABG (coronary artery bypass graft) Social History Social History Household Members: Other Housing: House Do you presently have visiting nurse or other home services: No Patient Tobacco Use Status: Former Tobacco user Tobacco use type: Cigarette Smoked in Last 30 Days: Yes Substance Use Type: Unknown Substance Use Frequency: Daily Last Used Substance: Days (ago) Currently Displaying Signs/Symptoms of Drug Intoxication Withdrawal: No Any prior treatment program specific to substance use: Yes Have you been hit, kicked, punched, or otherwise hurt by someone within the past year? If so, by whom?: No Do you feel safe in your current relationship?: Yes Is there a partner from a previous relationship who is making you feel unsafe now?: No Advance Directives: No Advance Directives Information Provided: No Do you have thoughts of harming others: None Do you have a plan to hurt others: No Plan Nutrition Risks: No Nutritional Risk Meds Allergies Allergy/AdvReac Type Severity Reaction Status Date / Time No Known Allergies Allergy Verified 10/17/23 10:28 Active Medications: Current Medications Acetaminophen (Acetaminophen 325 Mg Tablet) 650 mg PO Q6H PRN PRN Reason: Pain, Mild (Pain Scale 1-3) Apixaban (Apixaban 5 Mg Tablet) 5 mg PO BID [facility] Last Admin: 10/18/23 09:31 Dose: 5 mg Aspirin (Aspirin Enteric Coated 81 Mg Tablet.Dr) 81 mg PO DAILY [facility] Last Admin: 10/18/23 09:31 Dose: 81 mg Atorvastatin Calcium (Atorvastatin Calcium 40 Mg Tablet) 40 mg PO DAILY [facility] Last Admin: 10/18/23 09:30 Dose: 40 mg Benzonatate (Benzonatate 100 Mg Capsule) 100 mg PO TID PRN PRN Reason: Cough Dextrose (Dextrose 50 % 25 Gm/50 Ml Syringe) 25 gm IVPUSH Q15M PRN; Protocol PRN Reason: per Hypoglycemia Standing Ord. Docusate Sodium (Docusate Sodium 100 Mg Capsule) 100 mg PO DAILY PRN PRN Reason: Constipation Furosemide (Furosemide 40 Mg/4 Ml Vial) 40 mg IVPUSH BID@0900,1800 [facility]; Protocol Last Admin: 10/18/23 09:30 Dose: 40 mg Glucose (Glucose Gel 15 Gm Gel..Gram.) 15 gm PO Q15M PRN; Protocol PRN Reason: per Hypoglycemia Standing Ord. Insulin Human Lispro (Insulin Lispro 100 Unit/Ml 3 Ml Vial) 0 unit SUBCUT QIDACHS [facility]; Protocol Last Admin: 10/18/23 11:33 Dose: Not Given Isosorbide Mononitrate (Isosorbide Mononitrate 30 Mg Tab.Er.24h) 30 mg PO DAILY [facility]; Protocol Last Admin: 10/18/23 09:30 Dose: 30 mg Melatonin (Melatonin 3 Mg Tablet) 6 mg PO BEDTIME PRN PRN Reason: Insomnia Last Admin: 10/18/23 00:41 Dose: 6 mg Methadone HCl (Methadone Hcl 20 Mg/2 Ml Oral.Conc) 10 mg PO Q3H PRN PRN Reason: Opiate Withdrawal Last Admin: 10/18/23 03:13 Dose: 10 mg Methadone HCl (Methadone Hcl 20 Mg/2 Ml Oral.Conc) 15 mg PO ONCE ONE Stop: 10/19/23 09:01 Ondansetron HCl (Ondansetron Hcl 4 Mg/2 Ml Vial) 4 mg IVPUSH Q8H PRN PRN Reason: Nausea and Vomiting Sacubitril/Valsartan (Sacubitril/Valsartan 1 Tab Tablet) 2 tab PO DAILY [facility]; Protocol Sodium Chloride (0.9 % Sodium Chloride Flush 3 Ml Syringe) 3 ml IVFLUSH [facility] Last Admin: 10/18/23 09:31 Dose: 3 ml Spironolactone (Spironolactone 25 Mg Tablet) 25 mg PO DAILY [facility]; Protocol Home Medications Medication Instructions Recorded Confirmed Last Taken Type apixaban 5 mg tablet (Eliquis) 5 mg PO BID 10/17/23 10/17/23 Unknown History aspirin 81 mg tablet,delayed 81 mg PO DAILY 10/17/23 10/17/23 Unknown History release atorvastatin 40 mg tablet 40 mg PO DAILY 10/17/23 10/17/23 Unknown History bumetanide 2 mg tablet 2 mg PO DAILY 10/17/23 10/17/23 Unknown History buprenorphine 8 mg-naloxone 2 mg 1 film sublingual TID 10/17/23 10/17/23 Unknown History sublingual film carvedilol 6.25 mg tablet 6.25 mg PO DAILY 10/17/23 10/17/23 Unknown History dapagliflozin propanediol 10 mg 10 mg PO DAILY 10/17/23 10/17/23 Unknown History tablet (Farxiga) eplerenone 25 mg tablet 25 mg PO DAILY 10/17/23 10/17/23 Unknown History isosorbide mononitrate 30 mg 30 mg PO DAILY 10/17/23 10/17/23 Unknown History tablet,extended release 24 hr sacubitril 24 mg-valsartan 26 mg 1 tab PO DAILY 10/17/23 10/17/23 Unknown History tablet (Entresto) Physical Exam 2 Vital Signs: Vital Signs: Last Vital Signs Temp 97.4 F 10/18/23 11:18 Pulse 52 10/18/23 11:18 Resp 20 10/18/23 11:18 BP 114/73 10/18/23 11:18 Pulse Ox 96 10/18/23 11:18 O2 Del Method Room Air 10/18/23 11:18 BMI result Body Mass Index 22.9 Const: General: cooperative, comfortable, no acute distress, alert and awake Nutritional Appearance: thin Orientation/consciousness: patient oriented x3 HEENT: Head: Yes normocephalic and Yes atraumatic Neck: Neck: Yes trachea midline, Yes supple and Yes no JVD Resp: Effort & Inspection: normal respiratory effort Auscultation: clear to auscultation bilaterally Cardio: Jugular venous distension: no JVD Palpation: abnormal PMI displaced PMI Rate: regular rate Rhythm: regular rhythm Heart sounds: S1 normal heart sound present, S2 normal heart sound present, no click, no gallops, no murmurs and no rubs GI: Auscultation: normal bowel sounds Skin: General skin exam: no rashes or lesions noted Neuro: General: patient oriented x3 and no focal motor deficits Extrem: General: Yes no clubbing, cyanosis or edema Objective Labs and Meds 10/17/23 07:49 10/18/23 07:05 Lab results: Laboratory Results - last 24 hr 10/17/23 10/18/23 10/18/23 07:49 00:35 07:05 Sodium 135 Potassium 4.5 Chloride 101 Carbon Dioxide 30 H Anion Gap 9 L BUN 32 H Creatinine 1.15 Estim Creat Clear Calc 54.0 Estimated GFR > 60 POC Glucose 90 Random Glucose 88 Calcium 8.9 Magnesium 2.1 Total Creatine Kinase 49 10/18/23 10/18/23 07:10 11:18 Sodium Potassium Chloride Carbon Dioxide Anion Gap BUN Creatinine Estim Creat Clear Calc Estimated GFR POC Glucose 79 93 Random Glucose Calcium Magnesium Total Creatine Kinase Assessment and Plan (1) CHF exacerbation: Status: Acute CHF exacerbation in this middle-aged man with known prior severe LV systolic dysfunction most likely related to ischemic cardiomyopathy. Patient is noncompliant with his medications. Came to visit his sister ended up not taking his medication up with decompensated congestive heart failure. Importance of compliance with medication was discussed. He said he does not feel well when he takes his medication, not sure as to what that means. However is notice that he is bradycardic on carvedilol therapy is possible that he is symptoms of chronotropic incompetence related to carvedilol therapy. Would hold off on carvedilol therapy. Can not maximize Entresto as well as add Aldactone to his regimen for neurohormonal modulation. Clinically appears to be more euvolemic at this point time. Starting tomorrow can switch to oral diuretic therapy. If his heart rate improves, and he is feeling better can potentially be discharged home tomorrow with close follow-up with his babcock tester in [place]. Discussed with him the need for defibrillator therapy to reduce risk of sudden cardiac , he will think about it. Would be a dual-chamber defibrillator placement given his sinus bradycardia as eventually carvedilol can be reintroduced to his therapy for neurohormonal modulation. Will follow with you Procedures Date of Service Date of Service: 10/18/23
--- NOTE | 2023-10-18 16:20 | MHC.CM.PN ---
PT REPORTS HE MOVED HERE FROM [place] THREE DAYS AGO HE IS STAYING WITH HIS SISTER UNTIL HE FINDS HIS OWN PLACE HE DOES NOT HAVE ANY PROVIDERS YET HE IS INDEPENDENT WITH CARE NO HCP AND NO PCP IMM DELIVERED REFERRAL MADE TO [facility] [place] FS RESOURCE BOOK PROVIDED DCP: HOME NO SERVICES VIA FAMILY TRANSPORT
[2023-10-18 16:43] LABS: Glucose, Whole Blood 145 mg/dL (60-115)
--- NOTE | 2023-10-19 | ECG_ITS ---
Test Reason : threat monitoring analyst changes Blood Pressure : / mmHG Vent. Rate : 056 BPM Atrial Rate : 056 BPM P-R Int : 226 ms QRS Dur : 104 ms QT Int : 474 ms P-R-T Axes : 043 -12 130 degrees QTc Int : 457 ms Sinus bradycardia with 1st degree A-V block Left ventricular hypertrophy with repolarization abnormality ( [place] product ) Inferior infarct (cited on or before 17-OCT-2023) Anterior infarct (cited on or before 17-OCT-2023) Abnormal ECG When compared with ECG of 17-OCT-2023 07:42, No significant change was found Referred By: Ligia Cerna Electronically Signed By:LOU RONDON MD
[2023-10-19 03:33] VITALS: BP 122/69; PULSE 54; RESP 17; TEMP 37.1; O2SAT 98
[2023-10-19] MEDS: LORazepam 0.5 MG TABLET PO (04:35)
[2023-10-19 07:08] LABS: Hematocrit 43.9 % (42.0-52.0); Hemoglobin 13.9 g/dl (14.0-18.0); Mean Corpuscular HGB Conc 31.7 g/dl (31.0-36.0); Mean Corpuscular Hemoglobin 26.2 pg (27.0-33.0); Mean Corpuscular Volume 82.8 fL (80.0-98.0); Platelet Count 209 X10*3/uL (160-400); Red Cell Distribution Width 16.7 % (11.0-16.0); White Blood Count 4.8 X10*3/uL (4.8-10.8)
[2023-10-19 07:28] LABS: Anion Gap 12 (12-20); B Type Natriuretic Peptide 675 pg/mL (<100); Blood Urea Nitrogen 40 mg/dL (9-16); Calcium 9.1 mg/dL (8.4-10.2); Carbon Dioxide 30 mmol/L (22-29); Chloride 100 mmol/L (96-108); Creatinine Clr Calc Pharmacy 50.5; Estimated Glomerular Filt Rate > 60; Glucose Fasting 88 mg/dL (60-99); Glucose Random 86 mg/dL (60-115); Magnesium 2.1 mg/dL (1.6-2.6); Potassium 4.3 mmol/L (3.3-5.1); Sodium 138 mmol/L (135-145)
[2023-10-19 08:00] VITALS: BP 131/81; PULSE 54; RESP 16; TEMP 36.6; O2SAT 96
[2023-10-19 08:10] LABS: Estimated Average Glucose 114 mg/dL; Hemoglobin A1c % 5.6 % (<6.0)
--- NOTE | 2023-10-19 08:39 | P.PNIM_ITS ---
Subjective Subjective Date of Service: 10/19/23 Interval History: feels worse today Physical Exam 2 Vital Signs: Vital Signs: Last Vital Signs Temp 97.9 F 10/19/23 08:00 Pulse 54 10/19/23 08:00 Resp 16 10/19/23 08:00 BP 131/81 10/19/23 08:00 Pulse Ox 96 10/19/23 08:00 O2 Del Method Room Air 10/19/23 08:00 BMI result Body Mass Index 22.9 Const: General: cooperative, comfortable, no acute distress, alert and awake Nutritional Appearance: thin Orientation/consciousness: patient oriented x3 HEENT: Head: Yes normocephalic and Yes atraumatic Neck: Neck: Yes trachea midline, Yes supple and Yes no JVD Resp: Effort & Inspection: normal respiratory effort Auscultation: clear to auscultation bilaterally Cardio: Jugular venous distension: no JVD Palpation: abnormal PMI displaced PMI Rate: regular rate Rhythm: regular rhythm Heart sounds: S1 normal heart sound present, S2 normal heart sound present, no click, no gallops, no murmurs and no rubs GI: Auscultation: normal bowel sounds Skin: General skin exam: no rashes or lesions noted Neuro: General: patient oriented x3 and no focal motor deficits Extrem: General: Yes no clubbing, cyanosis or edema Objective Data Active Medications Acetaminophen (Acetaminophen 325 Mg Tablet) 650 mg PO Q6H PRN PRN Reason: Pain, Mild (Pain Scale 1-3) Apixaban (Apixaban 5 Mg Tablet) 5 mg PO BID [facility] Last Admin: 10/18/23 23:16 Dose: 5 mg Documented By: AIMEE Aspirin (Aspirin Enteric Coated 81 Mg Tablet.) 81 mg PO DAILY [facility] Last Admin: 10/18/23 09:31 Dose: 81 mg Documented By: PAUL Atorvastatin Calcium (Atorvastatin Calcium 40 Mg Tablet) 40 mg PO DAILY [facility] Last Admin: 10/18/23 09:30 Dose: 40 mg Documented By: PAUL Benzonatate (Benzonatate 100 Mg Capsule) 100 mg PO TID PRN PRN Reason: Cough Dextrose (Dextrose 50 % 25 Gm/50 Ml Syringe) 25 gm IVPUSH Q15M PRN; Protocol PRN Reason: per Hypoglycemia Standing Ord. Docusate Sodium (Docusate Sodium 100 Mg Capsule) 100 mg PO DAILY PRN PRN Reason: Constipation Furosemide (Furosemide 40 Mg/4 Ml Vial) 40 mg IVPUSH BID@0900,1800 [facility]; Protocol Last Admin: 10/18/23 17:38 Dose: 40 mg Documented By: PAUL Glucose (Glucose Gel 15 Gm Gel..Gram.) 15 gm PO Q15M PRN; Protocol PRN Reason: per Hypoglycemia Standing Ord. Isosorbide Mononitrate (Isosorbide Mononitrate 30 Mg Tab.Er.24h) 30 mg PO DAILY [facility]; Protocol Last Admin: 10/18/23 09:30 Dose: 30 mg Documented By: PAUL Melatonin (Melatonin 3 Mg Tablet) 6 mg PO BEDTIME PRN PRN Reason: Insomnia Last Admin: 10/18/23 23:17 Dose: 6 mg Documented By: AIMEE Methadone HCl (Methadone Hcl 20 Mg/2 Ml Oral.Conc) 10 mg PO Q3H PRN PRN Reason: Opiate Withdrawal Last Admin: 10/18/23 03:13 Dose: 10 mg Documented By: ROSANGELA Methadone HCl (Methadone Hcl 20 Mg/2 Ml Oral.Conc) 15 mg PO ONCE ONE Stop: 10/19/23 09:01 Ondansetron HCl (Ondansetron Hcl 4 Mg/2 Ml Vial) 4 mg IVPUSH Q8H PRN PRN Reason: Nausea and Vomiting Sacubitril/Valsartan (Sacubitril/Valsartan 1 Tab Tablet) 2 tab PO DAILY [facility]; Protocol Sodium Chloride (0.9 % Sodium Chloride Flush 3 Ml Syringe) [facility] Last Admin: 10/19/23 04:23 Dose: Not Given Documented By: THEODORE Non-Admin Reason: Previously Administered Spironolactone (Spironolactone 25 Mg Tablet) 25 mg PO DAILY [facility]; Protocol Labs 10/19/23 06:44 10/19/23 06:44 Labs: Laboratory Results - last 24 hr 10/18/23 10/18/23 10/19/23 11:18 16:33 06:44 MCV 82.8 MCH 26.2 L MCHC 31.7 RDW 16.7 H Plt Count 209 D MPV 12.0 Absolute Nucleated RBC 0.000 Nucleated RBC % (auto) 0.0 Anion Gap 12 Estim Creat Clear Calc 50.5 Estimated GFR > 60 POC Glucose 93 145 H Random Glucose 86 Fasting Glucose 88 Estimat Average Glucose 114 Hemoglobin A1c % 5.6 Calcium 9.1 Magnesium 2.1 B-Natriuretic Peptide 675 H Microbiology Microbiology Results: Microbiology 10/17/23 10:04 Blood Culture - Preliminary Blood - Venous No growth after 24 hours. 10/17/23 09:47 Blood Culture - Preliminary Blood - Venous No growth after 24 hours. Assessment and Plan (1) HFrEF (heart failure with reduced ejection fraction): Status: Acute Plan 58M PMH hfref, cad s/p cabg, AV endocarditis, hcv, epilepsy, presented with sob acute on chronic systolic and diastolic chf diuresed well, changed to oral maintenance entresto increased, aldactone added stopped coreg for bradycardia cardio following will need AICD (patient will think about it, not interested currently) opiate dependence methadone cad asa, statin htn aldactone, imdur, entresto dm insulin on eliquis ?indication dvt prophylaxis - eliquis full code reason for continued hospitalization: reports feeling worse than yesterday, ?symptomatic tyrone, plan to ambulate and monitor and dc home when improved Quality Stroke Does the patient have a stroke diagnosis?: No VTE Prior VTE?: No VTE Risk Level:: Medical - moderate - high VTE Device Contraindication: Treatment Not Indicated VTE Drug Contraindication: N/A - Med Ordered
[2023-10-19 09:20] LABS: Glucose, Whole Blood 97 mg/dL (60-115)
--- NOTE | 2023-10-19 10:08 | PM.DS ---
DS: Providers Provider Date of Service: 10/19/23 Date of admission: 10/17/23 14:50 Primary care physician: None Physician Consults: 10/17/23 14:53 Consult to Cardiology Routine Consulting Provider: [facility] Reason for consultation: CHF exacerbation 10/17/23 14:57 Addiction Medicine Routine Consulting Provider: Addiction Covering Reason for consultation: Recent heroin use, long hx of IVDU DS: Diagnosis Discharge Diagnosis (1) HFrEF (heart failure with reduced ejection fraction): Status: Acute DS: Summary Hospital Course Hospital Course: from initial hpi: 58-year-old male with a PMH significant for?CAD, 3-vessel CABG (2019), HFrEF <25%, aortic valve endocarditis (2018), hepatitis C (untreated), and epilepsey who presents to the ED for evaluation of altered mental status, SOB, weakness, and fatigue x4 days. Pt lives in [facility], and had a fall with headstrike and LOC 4 days ago in [facility] [place] ED provider contacted [facility] in [place] and found out that patient was seen on October 13 and left AMA later that same day. There was concern for possible bleeding on brain. Attempted to get records from hospital but will be unable to obtain until Wednesday. Patient then came to [place] to visit his sister. While here he was noted to have moments of confusion and lethargy. Sister states a few days ago he was repeatedly asking the same questions, more silent than usual, and not recognizing people. Mentation has improved some since then, but pt has also been fatigued and lethargic, weak and unable to ambulate at home. When pt initially presented to the ED he was somnolent, arousable to verbal stimuli, but barely participating in interview and falling back asleep during exam. Pt more awake during this interview and AOx3, but also falling asleep during exam. Pt states he has been having difficulty breathing and feels like he has ?water on his lungs? for the past 2-3 days. Endorses orthopnea and currently can only sleep on his side. Feels weak and has had difficulty walking. Denies chest pain/pressure, palpitations, but has chest discomfort with breathing. Denies fever, chills, N/V, abdominal pain. No headache or acute vision changes. According to sister, pt has had multiple previous admissions to the hospital for CHF, with last one possible 2-3 weeks ago. Pt states he occasionally takes his home medications, but more often than not does not. Sister also reports patient had a long history of IVDU, but was clean for 13-14 years; however, after CABG began using again for a short period. Sister believes he has been clean for some time. However, offers conflicting reports of last use: first states 8 days ago, then later 4-5 days ago. Denies IV use, says has been snorting heroin. In the ED pt was hypertensive up to 185/102, vitals otherwise WNL. Labs were significant for H&H 12.5/39.8, BUN 28, creatinine 1.00 (baseline unknown), bilirubin 1.3, alk-phos 137, initial troponin 22.2 with repeat flat at 20.3., BNP 2264. Tox screen positive for fentanyl and benzos. Tested negative for COVID. CXR showed evidence of congestive heart failure with small right pleural effusion. Head CT found no evidence of acute intracranial hemorrhage or abnormal extra-axial fluid collection and no evidence of acute edematous territorial infarction. But did find left occipital hypodensity/encephalomalacia suggestive of prior infarction. CT of chest found mild interstitial infiltrate/subsegmental atelectasis at middle and right lower lobes with small right pleural effusion, mildly prominent mediastinal and right hilar lymph nodes probably reactive, cardiomegaly, heavy coronary calcification, and 5 mm nodule in right upper lobe. CT of abdomen/pelvis found aneurysmal dilation of ascending aorta 4.2 cm, and diffusely hypodense liver suggesting hepatic steatosis. EKG demonstrated sinus rhythm with first-degree AV block with T-wave inversions in V4, V5, V6, and lead I. Pt was treated with furosemide 40mg IV. Pt will be admitted to the hospital for treatment further evaluation of acute decompensated HFrEF exacerbation. hospital course: patient was admitted for acute on chronic systolic and diastolic chf. he was treated with iv lasix and diuresed well. he was noted to be sinus tyrone on tele, coreg was stopped, ?cause of syncope vs toxic encephalopathy from drug use. he was started on aldactone and entresto increased. seen by cardiology, transitioned to po maintenance diuretics, and recommended to follow up to set up AICD. patient now euvolemic and feeling better. for opiate dependence was started on methadone. for cad continue on asa, eliquis, statin. for hypertension, continued on entresto, aldactone, and imdur. patient is feeling better and will be discharged home. Time Attestation Discharge coordination time: Greater than 30 minutes Quality: Safe Use of Opioids Does Pt have an Active Cancer Diagnosis on the Problem List?: No Quality: Stroke Does the patient have a stroke diagnosis?: No Physical Exam Vital Signs: Vital Signs: Last Vital Signs Temp 97.9 F 10/19/23 08:00 Pulse 54 10/19/23 08:00 Resp 16 10/19/23 08:00 BP 131/81 10/19/23 08:00 Pulse Ox 96 10/19/23 08:00 O2 Del Method Room Air 10/19/23 08:00 BMI result Body Mass Index 22.9 DS: Data Data Completed and Pending Labs on day of discharge: Laboratory Results - last 24 hr 10/18/23 10/18/23 10/19/23 11:18 16:33 06:44 WBC 4.8 RBC 5.30 Hgb 13.9 L Hct 43.9 MCV 82.8 MCH 26.2 L MCHC 31.7 RDW 16.7 H Plt Count 209 D MPV 12.0 Absolute Nucleated RBC 0.000 Nucleated RBC % (auto) 0.0 Sodium 138 Potassium 4.3 Chloride 100 Carbon Dioxide 30 H Anion Gap 12 BUN 40 H Creatinine 1.23 Estim Creat Clear Calc 50.5 Estimated GFR > 60 POC Glucose 93 145 H Random Glucose 86 Fasting Glucose 88 Estimat Average Glucose 114 Hemoglobin A1c % 5.6 Calcium 9.1 Magnesium 2.1 B-Natriuretic Peptide 675 H 10/19/23 08:12 WBC RBC Hgb Hct MCV MCH MCHC RDW Plt Count MPV Absolute Nucleated RBC Nucleated RBC % (auto) Sodium Potassium Chloride Carbon Dioxide Anion Gap BUN Creatinine Estim Creat Clear Calc Estimated GFR POC Glucose 97 Random Glucose Fasting Glucose Estimat Average Glucose Hemoglobin A1c % Calcium Magnesium B-Natriuretic Peptide Preliminary micro results at discharge 10/17/23 10:04 Blood Culture - Preliminary Blood - Venous No growth after 24 hours. 10/17/23 09:47 Blood Culture - Preliminary Blood - Venous No growth after 24 hours. Discharge Plan Discharge Anticipated Discharge Date/Time: 10/19/23 10:05 Patient Disposition: Home, Self-Care Discharge Diagnosis: hfref Referrals: Physician,None [Primary Care Provider] - 1 Week Discharge Medications: New furosemide 40 mg Tablet 40 mg PO DAILY Qty: 90 0RF Protocol: Hold for SBP< HOLD for SBP < : 90 spironolactone 25 mg Tablet 25 mg PO DAILY Qty: 90 0RF Protocol: Hold for SBP< HOLD for SBP < : 90 Entresto 49-51 mg tablet 1 tab PO BID Qty: 180 0RF Continued buprenorphine-naloxone 8-2 mg film 1 film sublingual TID atorvastatin 40 mg Tablet 40 mg PO DAILY Qty: 90 0RF isosorbide mononitrate 30 mg tablet extended release 24 hr 30 mg PO DAILY Qty: 90 0RF aspirin 81 mg Tablet,Delayed Release (Dr/Ec) 81 mg PO DAILY Qty: 90 0RF Eliquis 5 mg tablet 5 mg PO BID Qty: 180 0RF dapagliflozin propanediol [Farxiga] 10 mg tablet 10 mg PO DAILY Qty: 90 0RF Discontinued carvedilol 6.25 mg tablet 6.25 mg PO DAILY bumetanide 2 mg tablet 2 mg PO DAILY eplerenone 25 mg tablet 25 mg PO DAILY Entresto 24-26 mg tablet 1 tab PO DAILY Discharge Orders: Discharge Order (Routine); Ordered 10/19/23 Ordered By: Luís Sinclair Diet: Low salt diet Activity on Discharge: As tolerated Stand Alone Forms: Patient Portal Discharge page Care Plan Goals: recovery Health Concerns: hfref Plan of Treatment: meds as prescribed, follow up with cardiology to set up defibrillator Assessment: see above
[2023-10-19] MEDS: Atorvastatin Calcium 40 MG TABLET PO (10:19)
[2023-10-19] MEDS: Isosorbide Mononitrate 30 MG TAB.ER.24H PO (10:20)
[2023-10-19] MEDS: Sacubitril/Valsartan 24/26 1 TAB TABLET 2 TAB PO (10:20)
[2023-10-19] MEDS: Apixaban 5 MG TABLET PO (10:20)
[2023-10-19] MEDS: Spironolactone 25 MG TABLET PO (10:20)
[2023-10-19] MEDS: Aspirin Enteric Coated 81 MG TABLET.DR PO (10:21)
[2023-10-19] MEDS: 0.9 % Sodium Chloride Flush 3 ML SYRINGE IVFLUSH (10:25)
--- NOTE | 2023-10-19 10:32 | MHC.CM.PN ---
Addendum entered by Annmarie Gomez RN 10/19/23 14:51: CM MET W/PT AND SISTER AT BEDSIDE, SISTER REPORTS PT UNABLE TO RETURN TO HER [place] SHE HAS HOUSING, CM GAVE PT LIST OF SHELTERS/CHD CONTACT INFO FOR THOSE WHO CAN ASSIST W/PLACEMENT, CM INSTRUCTED PT/SISTER TO CALL AND CM CONTACTED [facility] AND [facility], [facility] F[facility] AND [facility] REPORTS THEY DO HAVE A MALE BED AVAILABLE AND CM SPOKE W/NURSE AT [facility] WHO REPORTS THEY DO HAVE A MALE BED FOR PT AND HE NEEDS TO BE THERE BETWEEN 4:30-5:30PM FOR INTAKE AND DINNER, CM CONTACTED PT'S SISTER VIA CE[employer] THEY HAD LEFT UNIT TO LET HER KNOW PT HAS BED AT [facility]. Original Note: PT MEDICALLY CLEARED FOR DC HOME SELF CARE AND FAMILY FOR TRANSPORT
--- NOTE | 2023-10-19 11:36 | PM.PNCARD ---
Subjective Subjective Date of Service: 10/19/23 Principal diagnosis: CHF exacerbation. Interval history: Echo shows moderate LV systolic dysfunction. Heart failure symptoms have improved significantly. Blood pressure remained stable. Heart rate has improved and in the mid upper 50s to low 60s. Denies lightheadedness, syncope. Review of Systems Review of Systems Yes all other systems are reviewed and are negative Physical Exam Vital Signs: Last Vital Signs Temp 97.9 F 10/19/23 08:00 Pulse 54 10/19/23 08:00 Resp 16 10/19/23 08:00 BP 131/81 10/19/23 08:00 Pulse Ox 96 10/19/23 08:00 O2 Del Method Room Air 10/19/23 08:00 BMI result Body Mass Index 22.9 Const General: cooperative, comfortable, no acute distress, alert and awake Nutritional Appearance: thin Orientation/consciousness: patient oriented x3 HEENT Head: Yes normocephalic and Yes atraumatic Neck Neck: Yes trachea midline, Yes supple and Yes no JVD Resp Effort & Inspection: normal respiratory effort Auscultation: clear to auscultation bilaterally Cardio Jugular venous distension: no JVD Palpation: abnormal PMI displaced PMI Rate: regular rate Rhythm: regular rhythm Heart sounds: S1 normal heart sound present, S2 normal heart sound present, no click, no gallops, no murmurs and no rubs GI Auscultation: normal bowel sounds Skin General skin exam: no rashes or lesions noted Neuro General: patient oriented x3 and no focal motor deficits Extrem General: Yes no clubbing, cyanosis or edema Objective Labs and Meds 10/19/23 06:44 10/19/23 06:44 Lab results: Laboratory Results - last 24 hr 10/18/23 10/19/23 10/19/23 16:33 06:44 08:12 WBC 4.8 RBC 5.30 Hgb 13.9 L Hct 43.9 MCV 82.8 MCH 26.2 L MCHC 31.7 RDW 16.7 H Plt Count 209 D MPV 12.0 Absolute Nucleated RBC 0.000 Nucleated RBC % (auto) 0.0 Sodium 138 Potassium 4.3 Chloride 100 Carbon Dioxide 30 H Anion Gap 12 BUN 40 H Creatinine 1.23 Estim Creat Clear Calc 50.5 Estimated GFR > 60 POC Glucose 145 H 97 Random Glucose 86 Fasting Glucose 88 Estimat Average Glucose 114 Hemoglobin A1c % 5.6 Calcium 9.1 Magnesium 2.1 B-Natriuretic Peptide 675 H Progress Note: A&P Assessment and plan (1) CHF exacerbation: Status: Acute Assessment and Plan: Heart failure with reduced ejection fraction with moderate LV systolic dysfunction with decompensation related to noncompliance with medications. Patient is doing a lot better at this point time. Can be discharged from cardiac perspective. Agree with current Entresto and Aldactone does. Avoid beta-edwin therapy given his bradycardia and intolerance to medications. Importance of diuretics on a daily basis was discussed. Would discharge him on 20 mg of Lasix. Patient says he is going to move to [place] and is going to follow-up locally. Will set up for outpatient testing for him. Patient can be discharged home. Thank you for allowing me to partake in his care Time Spent With Patient Time: Total time managing care of this patient today ____ minutes. Progress Note: Quality Stroke Does the patient have a stroke diagnosis?: No Procedures Date of Service Date of Service: 10/19/23
[2023-10-19 11:52] VITALS: BP 126/73; PULSE 61; RESP 16; TEMP 36.9; O2SAT 98
[2023-10-19 12:04] LABS: Glucose, Whole Blood 63 mg/dL (60-115)
== END 2023-10-19 14:56 | disposition home or self-care (01) | DRG 291 ==
LOC: HO.ED 10:20 → HO.EDOVER 15:06 → HO.IMC 18:22
PROVIDERS: Physician Assistant; Admitting Provider Student in an Organized Health Care Education/Training Program; Emergency Provider Emergency Medicine; Visit Provider Internal Medicine
DX: I11.0 Hypertensive heart disease with heart failure (principal); I50.43 Acute on chronic combined systolic (congestive) and diastolic (congestive) heart failure; F11.20 Opioid dependence, uncomplicated; I25.10 Atherosclerotic heart disease of native coronary artery without angina pectoris; G40.909 Epilepsy, unspecified, not intractable, without status epilepticus; I25.5 Ischemic cardiomyopathy; E78.5 Hyperlipidemia, unspecified; Z20.822 Contact with and (suspected) exposure to COVID-19; Z95.1 Presence of aortocoronary bypass graft; Z23 Encounter for immunization; Z91.148 Patient's other noncompliance with medication regimen for other reason; Z87.891 Personal history of nicotine dependence; Z79.899 Other long term (current) drug therapy
CPT/HCPCS: 36415; 70450; 71045; 71260; 74177; 80048; 80076; 80307; 81003; 82550; 82947; 83036; 83605; 83735; 83880; 84484; 85025; 85027; 85610; 87040; 87635; 90686; 93005; 93306; 93356; 97161; 99285; J1650; J1940; Q9967

== ENCOUNTER → 2023-10-17 07:41 | Outpatient (BNV) | payer MEDICAID, SELFPAY | PROVIDERS: Admitting Provider Student in an Organized Health Care Education/Training Program; Emergency Provider Emergency Medicine; Visit Provider Internal Medicine Cardiovascular Disease | DX: I50.20 Unspecified systolic (congestive) heart failure (principal) | CPT/HCPCS: 93010 ==

== ENCOUNTER 2023-10-17 14:50 | Outpatient (BNV) | payer MEDICAID, SELFPAY | END 2023-10-18 07:00 | PROVIDERS: Admitting Provider Student in an Organized Health Care Education/Training Program; Emergency Provider Emergency Medicine; Visit Provider Internal Medicine Cardiovascular Disease | DX: I25.5 Ischemic cardiomyopathy (principal); I35.1 Nonrheumatic aortic (valve) insufficiency | CPT/HCPCS: 93306 ==

== ENCOUNTER 2023-10-17 14:50 | Outpatient (BNV) | payer MEDICAID, SELFPAY | END 2023-10-19 06:07 | PROVIDERS: Admitting Provider Student in an Organized Health Care Education/Training Program; Emergency Provider Emergency Medicine; Visit Provider Internal Medicine Cardiovascular Disease | DX: I44.0 Atrioventricular block, first degree (principal); R94.31 Abnormal electrocardiogram [ECG] [EKG] | CPT/HCPCS: 93010 ==

== ENCOUNTER → 2023-10-17 14:50 | Outpatient (BNV) | payer MEDICAID, SELFPAY | PROVIDERS: Admitting Provider Student in an Organized Health Care Education/Training Program; Emergency Provider Emergency Medicine; Visit Provider Student in an Organized Health Care Education/Training Program | DX: I11.0 Hypertensive heart disease with heart failure (principal); I50.23 Acute on chronic systolic (congestive) heart failure; F11.20 Opioid dependence, uncomplicated; R41.82 Altered mental status, unspecified | CPT/HCPCS: 99223; 99233; 99238 ==

== ENCOUNTER → 2023-10-17 14:50 | Outpatient (BNV) | payer MEDICARE, MEDICAID, SELFPAY | PROVIDERS: Admitting Provider Student in an Organized Health Care Education/Training Program; Emergency Provider Emergency Medicine; Visit Provider Internal Medicine Cardiovascular Disease | DX: I50.9 Heart failure, unspecified (principal) | CPT/HCPCS: 99222; 99233 ==